=== PATIENT | female | born 1990 | race Caucasian/White ===

== ENCOUNTER 2016-05-17 21:51 | Emergency (ER) | payer OTHER ==
[~2016-05-17] VITALS: Ht 167.6 cm; Wt 56.5 kg
[2016-05-17 21:56] VITALS: Ht 167.6 cm; Wt 56.5 kg
[2016-05-17] MEDS ORDERED: ONDANSETRON 4 MG INJ IV STA (23:13)
[2016-05-17] MEDS ORDERED: SOD CHLORIDE 0.9% 1,000 ML IV ONE (23:30)
--- NOTE | 2016-05-17 23:31 | ERD ---
ER Documentation Chief Complaint Date/Time DATE: 05/17/16 TIME: 23:28 Chief Complaint 16 wks , pelvic pain and upper abd pain sine 2 hours ago, HPI Otherwise healthy 25-year-old female estimated to be 16 weeks presents the emergency department complaining of sudden onset of sharp 9 out of 10 epigastric pain following lunch today around 3 PM. Patient states that the pain was constant and lasted 45 minutes. Patient states she has never experienced this type of pain in the past and denies any acid reflux, burning, nausea, vomiting. Patient denies any pain since that time. Patient currently denies any significant pelvic pain, cramping or vaginal bleeding. Patient has not attempted to treat the pain at home with Tylenol. Patient notes intermittent nausea. She denies any fever, chills, diarrhea, back pain, dysuria , hematuria. ROS All systems reviewed and are negative except as per history of present illness. Allergies Allergies: Coded Allergies: No Known Allergy (Unverified , 05/17/16) PMhx/Soc Medical and Surgical Hx: pt denies Medical Hx, pt denies Surgical Hx Hx Alcohol Use: No Hx Substance Use: No Hx Tobacco Use: No Smoking Status: Never smoker Physical Exam Vitals Vital Signs Date Time Temp Pulse Resp B/P Pulse Ox O2 Delivery O2 Flow Rate FiO2 05/17/16 21:56 98.6 79 20 110/65 100 Physical Exam Const: Well-developed, well-nourished, in no acute distress Head: Atraumatic Eyes: Normal Conjunctiva ENT: Normal External Ears, Nose and Mouth. Neck: Full range of motion..~ No meningismus. Resp: Clear to auscultation bilaterally Cardio: Regular rate and rhythm, no murmurs Abd: Soft, non tender, non distended. Normal bowel sounds Skin: No petechiae or rashes Back: No midline or flank tenderness Ext: No cyanosis, or edema Neur: Awake and alert Psych: Normal Mood and Affect Result Diagram: 05/17/16 2345 05/17/16 2345 Results 24 hrs Laboratory Tests Test 05/17/16 23:45 Alanine Aminotransferase (ALT/SGPT) 19IU/L Albumin 4.1g/dl Albumin/Globulin Ratio 1.32 Alkaline Phosphatase 56IU/L Anion Gap 15 Aspartate Amino Transf (AST/SGOT) 17IU/L Basophils # 0.010^3/ul Basophils % 0.2% Blood Urea Nitrogen 7mg/dl Calcium Level 9.4mg/dl Carbon Dioxide Level 27mmol/L Chloride Level 101mmol/L Creatinine 0.45mg/dl Direct Bilirubin 0.00mg/dl Eosinophils # 0.110^3/ul Eosinophils % 0.8% Globulin 3.10g/dl Glucose Level 79mg/dl Hematocrit 36.4% Hemoglobin 11.9g/dl Indirect Bilirubin 0.0mg/dl Lymphocytes # 3.010^3/ul Lymphocytes % 27.9% Mean Corpuscular Hemoglobin 30.7pg Mean Corpuscular Hemoglobin Concent 32.7g/dl Mean Corpuscular Volume 93.8fl Mean Platelet Volume 10.3fl Monocytes # 0.610^3/ul Monocytes % 5.1% Neutrophils # 7.110^3/ul Neutrophils % 65.6% Nucleated Red Blood Cells # 0.010^3/ul Nucleated Red Blood Cells % 0.0/100WBC Platelet Count 19968^3/UL Potassium Level 3.1mmol/L Red Blood Count 3.8810^6/ul Red Cell Distribution Width 13.4% Sodium Level 140mmol/L Total Bilirubin 0.0mg/dl Total Protein 7.2g/dl Urine Bilirubin NEGATIVE Urine Clarity SLIGHTLY CLOUDY Urine Color LT. YELLOW Urine Glucose NEGATIVE% Urine Hemoglobin NEGATIVE Urine Ketones NEGATIVE Urine Leukocyte Esterase NEGATIVE Urine Nitrite NEGATIVE Urine Specific [place] 1.020 Urine Total Protein NEGATIVE Urine Urobilinogen 0.2 E.U./dL Urine pH 7.0 White Blood Count 10.810^3/ul Current Medications Medications (Trade) Dose Ordered Sig/Gregorio Route PRN Reason Start Time Stop Time Status Last Admin Dose Admin Sodium Chloride (NS) 1,000 ml @ 1,000 mls/hr Q1H ONCE IV 05/17/16 23:30 05/18/16 00:29 DC 05/17/16 23:37 Ondansetron HCl (Zofran Inj) 4 mg ONCE STAT IV 05/17/16 23:13 05/17/16 23:19 DC 05/17/16 23:36 Procedures/MDM Ultrasound of abdomen performed in ER. No evidence of gallbladder wall thickening or bile duct dilation, hepatitis or pancreatitis. Ultrasound does demonstrate mild right-sided hydronephrosis. Patient received a bolus of fluids as well as Zofran for nausea and reports improvement of symptoms. Patient's urine unremarkable for acute bacteremia or hematuria CMP without evidence of severe electrolyte abnormality, biliary obstruction, acidosis, or alkalosis. CBC demonstrate evidence of iron deficiency anemia with hemoglobin of 11.9. At this time patient does not meet criteria for admission and blood transfusion. I recommended to the patient the vaginal ultrasound to examine the health of the fetus however patient refused stating that she only wished to obtain an abdominal ultrasound. Patient denies any history of severe lower abdominal pain, bleeding, or vaginal discharge. At this time I have low suspicion for spontaneous , pelvic inflammatory disease, ovarian torsion, cholecystitis, appendicitis, pancreatitis or hepatitis. Patient's vital signs reviewed. Patient afebrile, normotensive, non-tachycardic and non-hypoxic. Based on patient's history of present illness and physical examination the decision was made to discharge. The patient was re-evaluated after ED treatment and stabilizing measures, and symptoms have improved. There is no evidence of life threatening injuries or illnesses at this time. On re-examination, patient resting in no distress, stable vital signs, reports feeling better and safe for discharge with outpatient follow up with PMD in 1-2 days. Patient given return precautions. Departure Diagnosis: Primary Impression: Abdominal pain Abdominal location: epigastric Qualified Code: R10.13 - Epigastric pain Additional Impressions: Epigastric pain Nausea Anemia Anemia type: iron deficiency Iron deficiency anemia type: unspecified iron deficiency Qualified Code: D50.9 - Iron deficiency anemia, unspecified iron deficiency anemia type FAYE JOLLY PA-C May 17, 2016 23:31
[2016-05-18 00:22] LABS: ADD SCAN DIFF NO
[2016-05-18 00:32] LABS: ADD UMIC NO; URINE BILIRUBIN (Dip) NEGATIVE (NEGATIVE); URINE BLOOD (Dip) NEGATIVE (NEGATIVE); URINE COLOR LT. YELLOW (YELLOW); URINE GLUCOSE (Dip) NEGATIVE (NEGATIVE); URINE KETONES (Dip) NEGATIVE (NEGATIVE); URINE LEUKOCYTE ESTERASE (Dip) NEGATIVE (NEGATIVE); URINE NITRITE (Dip) NEGATIVE (NEGATIVE); URINE TOTAL PROTEIN (Dip) NEGATIVE (NEGATIVE); URINE UROBILINOGEN (Dip) 0.2 E.U./dL (0.1-1.0)
[2016-05-18 00:38] LABS: BASOPHILS % 0.2 % (0.0-2.0); EOSINOPHILS # 0.1 10^3/ul (0.0-0.5); EOSINOPHILS % 0.8 % (0.0-7.0); HEMATOCRIT 36.4 % (37.0-47.0); HEMOGLOBIN 11.9 g/dl (12.0-16.0); LYMPHOCYTES % 27.9 % (15.0-51.0); MEAN CORPUSCULAR HEMOGLOBIN 30.7 pg (29.0-33.0); MEAN CORPUSCULAR HGB CONC 32.7 g/dl (32.0-37.0); MEAN CORPUSCULAR VOLUME 93.8 fl (82.0-101.0); MEAN PLATELET VOLUME 10.3 fl (7.4-10.4); MONOCYTE # 0.6 10^3/ul (0.3-0.9); MONOCYTES % 5.1 % (0.0-11.0); NEUTROPHIL # 7.1 10^3/ul (1.6-7.5); NEUTROPHILS % 65.6 % (39.0-77.0); PLATELET COUNT 212 10^3/UL (140-415); RED BLOOD COUNT 3.88 10^6/ul (4.20-5.40); RED CELL DISTRIBUTION WIDTH 13.4 % (11.5-14.5); WHITE BLOOD COUNT 10.8 10^3/ul (4.8-10.8)
[2016-05-18 00:48] LABS: ALBUMIN 4.1 g/dl (3.3-4.9); POTASSIUM 3.1 mmol/L (3.5-5.1)
[2016-05-18 00:50] LABS: CREATININE 0.45 mg/dl (0.44-1.00)
[2016-05-18 00:51] LABS: ALBUMIN/GLOBULIN RATIO 1.32; CALCIUM 9.4 mg/dl (8.4-10.2); TOTAL PROTEIN 7.2 g/dl (6.1-8.1)
--- NOTE | 2016-05-18 01:19 | RADRPT ---
PROCEDURE: ULTRASOUND LIMITED ABDOMEN CLINICAL INDICATION: 25-year-old female with abdominal pain. TECHNIQUE: Multiple sonographic of the right upper quadrant of the abdomen were obtained. The imag es were reviewed on a PACS workstation. COMPARISON: None. FINDINGS: The pancreas is partially visualized and is otherwise without focal abnormal echogenicity. The liver displays normal echogenicity. The liver measures 15.3 cm in length. No evidence of intrah epatic biliary ductal dilatation is seen. The portal and hepatic veins are unremarkable. The gallbladder demonstrates no wall thickening, sludge, nor stones. No pericholecystic fluid is see n. The common bile duct measures 3.5 mm and is not dilated. The right kidney displays normal echogenicity. The right kidney measures 11.4 cm in maximal length. There is mild right-sided hydronephrosis. No free fluid is seen. IMPRESSION: Mild right-sided hydronephrosis. .Adi Whitman MD, MD Date Time Electronically viewed and signed by .Adi Whitman MD, on 05/18/2016 01:19 .Janie/
[2016-05-18] MEDS ORDERED: FAMO20TA18 PO (02:03)
[2016-05-18] MEDS ORDERED: FER325 PO (02:03)
[2016-05-18] MEDS ORDERED: ONDA4TAB11 PO (02:03)
[2016-05-18 02:53] VITALS: BP 109/66; PULSE 72; RESP 16
--- NOTE | 2016-05-18 09:12 | RADRPT ---
PROCEDURE: US OB. CLINICAL INDICATION: Pain. TECHNIQUE: Multiple sonographic images of the pelvis were obtained. Transabdominal imaging only w as performed. The images were reviewed on a PACS workstation. COMPARISON: None. FINDINGS: Single live intrauterine is identified. Cardiac activity is present with 143 beats per mi nute. There is a breech presentation. Measurements: BPD = 17 weeks 1 day. HC = 16 weeks 5 days. AC = 17 weeks 2 days. FL = 16 weeks 1 day. Estimated gestational age of approximately 16 weeks 6 days. The estimated date of delivery is 10/26/2016. The EFW = 168 g which is at the 82nd percentile. The placenta is anterior. . Amniotic fluid a single pocket is 4.8 cm. IMPRESSION: Single live intrauterine gestation of approximately 16 weeks 6 days. RPTAT: HMVK .Santiago Martino MD, Date Time Electronically viewed and signed by .Santiago Martino MD, on 05/18/2016 01:14 .K/
== END 2016-05-18 02:54 | disposition home or self-care (01) ==
LOC: FTE 21:51
DX: O26.892 Other specified pregnancy related conditions, second trimester (principal); R10.13 Epigastric pain; O99.012 Anemia complicating pregnancy, second trimester; O21.9 Vomiting of pregnancy, unspecified
CPT/HCPCS: 76705; 76810; 80053; 81003; 85025; 96374; J2405; J7030; Z7502

== ENCOUNTER 2016-09-02 21:13 | Inpatient (IN) | payer OTHER ==
[~2016-09-02] VITALS: Ht 157.5 cm; Wt 63.2 kg
[~2016-09-02 21:13] MED LIST: FAMO20TA18 PO; FER325 PO; ONDA4TAB11 PO
[2016-09-02] MEDS: LACTATED RINGER'S 1,000 ML IV SCH ×2 (22:45→23:06)
[2016-09-02] MEDS ORDERED: ACETAMINOPHEN 1000MG/100ML IV 100 ML IVPB PRN (23:45)
[2016-09-03] MEDS ORDERED: ONDANSETRON 4 MG INJ IV PRN (00:30)
[2016-09-03 00:42] VITALS: Ht 157.5 cm; Wt 63.2 kg
[2016-09-03 00:44] VITALS: BP 102/62; PULSE 110; RESP 18
--- NOTE | 2016-09-03 00:48 | HP ---
Date/Time of Note Date/Time of Note DATE: 09/03/16 TIME: 00:36 OB - History Hx of Present Free Text/Dictation 25 Year-old with SIUP at 31 4/7 weeks presents with a chief complaint of back pain and chills. She states diagnosed with UTI 2wks ago, was treated, however repeat U/C revealed still has URTI and was treated with different antibiotics. She states good movement. She denies nausea, vomiting, shortness of breath, chest pain, and headache, visual changes, vaginal bleeding or LOF. Care: Good Care Ultrasounds: Normal mid trimester US Obstetrical Complications: None Medical Complications: None Past Family/Social History * Past Medical, Surgical, Family and Obstetric Histories reviewed from chart. OB Admission Exam Physical Exam Heart: Other (tachcardic) Lungs: Clear Abdomen: WNL Extremities: Normal Reflexes: Normal Membranes: Intact Heart Rate: 150's (150-180) Accelerations: Accelerations Present Decelerations: No Decelerations Varibility: Moderate OB Assessment/Plan Other plan: 25 Year-old with SIUP at 31 4/7 weeks with back pain, fever,chills and possible pyelo - FHR: No sign of metabolic acidosis- Category I - Continuous EFM, toco - CBC, blood type and screen - CMP, U/A, U/C - OB and abdominal us - IVF bolus then 125 ml/h - Tylenol 1000 mg x1 stat - Ancef one gram IV Q6hrs Admission, procedures, expectations, risks and possible complications have been discussed in detail with the patient. She expressed understanding and repeats the risks. All of her questions were answered. She will follow by laborist SAVI HERNANDEZ Sep 03, 2016 00:46
[2016-09-03] MEDS: LACTATED RINGER'S 1,000 ML IV SCH ×3 (01:00→16:32)
[2016-09-03 01:25] LABS: ADD SCAN DIFF NO; BASOPHILS % 0.1 % (0.0-2.0); EOSINOPHILS % 0.1 % (0.0-7.0); HEMATOCRIT 31.3 % (37.0-47.0); HEMOGLOBIN 10.9 g/dl (12.0-16.0); LYMPHOCYTES # 1.1 10^3/ul (0.8-2.9); LYMPHOCYTES % 8.1 % (15.0-51.0); MEAN CORPUSCULAR HEMOGLOBIN 33.2 pg (29.0-33.0); MEAN CORPUSCULAR HGB CONC 34.8 g/dl (32.0-37.0); MEAN CORPUSCULAR VOLUME 95.4 fl (82.0-101.0); MEAN PLATELET VOLUME 9.5 fl (7.4-10.4); MONOCYTE # 0.6 10^3/ul (0.3-0.9); MONOCYTES % 4.6 % (0.0-11.0); NEUTROPHIL # 11.5 10^3/ul (1.6-7.5); NEUTROPHILS % 86.1 % (39.0-77.0); PLATELET COUNT 157 10^3/UL (140-415); RED BLOOD COUNT 3.28 10^6/ul (4.20-5.40); WHITE BLOOD COUNT 13.4 10^3/ul (4.8-10.8)
[2016-09-03] MEDS ORDERED: PREN-93 PO (01:27)
[2016-09-03 01:51] LABS: ADD UMIC YES; UR AMORPHOUS CRYSTAL MANY /HPF (NONE SEEN); UR ASCORBIC ACID NEGATIVE (NEGATIVE); UR BACTERIA MODERATE /HPF (NONE SEEN); UR BILIRUBIN (Dip) NEGATIVE (NEGATIVE); UR BLOOD (Dip) NEGATIVE (NEGATIVE); UR CLARITY CLOUDY (CLEAR); UR COLOR YELLOW (YELLOW); UR GLUCOSE (Dip) NEGATIVE (NEGATIVE); UR KETONES (Dip) NEGATIVE (NEGATIVE); UR LEUKOCYTE ESTERASE (Dip) 1+ Leu/ul (NEGATIVE); UR NITRITE (Dip) NEGATIVE (NEGATIVE); UR RBC 2 /HPF (0-5); UR SPECIFIC GRAVITY (Dip) 1.011 (1.003-1.030); UR SQUAMOUS EPITHELIAL CELL MANY /HPF (FEW); UR TOTAL PROTEIN (Dip) NEGATIVE (NEGATIVE); UR UROBILINOGEN (Dip) 1+ mg/dL (NEGATIVE)
[2016-09-03 01:59] LABS: ALBUMIN 3.6 g/dl (3.3-4.9); ALBUMIN/GLOBULIN RATIO 1.5; BILIRUBIN,INDIRECT 0.6 mg/dl (0-1.1); BILIRUBIN,TOTAL 0.6 mg/dl (0.2-1.3); CALCIUM 9.2 mg/dl (8.4-10.2); CREATININE 0.39 mg/dl (0.44-1.00); POTASSIUM 3.3 mmol/L (3.5-5.1)
--- NOTE | 2016-09-03 02:08 | RADRPT ---
PROCEDURE: ULTRASOUND RETROPERITONEUM CLINICAL INDICATION: 25-year-old female with back pain. TECHNIQUE: Multiple sonographic images of the retroperitoneum were obtained. The images were revi ewed on a PACS workstation. COMPARISON: None. FINDINGS: The kidneys are well visualized. The right kidney measures 12.2 cm in maximal length. The left kidne y measures 11.6 cm in maximal length. There are no focal areas of abnormal echogenicity. There is no evidence for obstructive uropathy. The bladder is without internal echoes or shadowing stones. IMPRESSION: Unremarkable retroperitoneal ultrasound. .Adi Whitman MD, Date Time Electronically viewed and signed by .Adi Whitman MD, on 09/03/2016 02:08 .Janie/
--- NOTE | 2016-09-03 02:08 | RADRPT ---
PROCEDURE: ULTRASOUND BIOPHYSICAL PROFILE CLINICAL INDICATION: 25-year-old female with contractions for viability. TECHNIQUE: Multiple sonographic images were obtained in order to perform a biophysical profile The images were reviewed on a PACS workstation. COMPARISON: Ultrasound OB May 17, 2016. FINDINGS: There is a single viable intrauterine gestation. There is a vertex presentation. Cardiac activity i s present at 168 beats per minute. The placenta is anterior. The results of the biophysical profile are as follows: breathing movement = 2/2 Gross body movement = 2/2 tone = 2/2 Qualitative amniotic fluid volume = 2/2 Amniotic fluid index equals 12.6 cm. This yields a biophysical profile score of 8/8. IMPRESSION: Biophysical profile score is 8/8. .dAi Whitman MD, Date Time Electronically viewed and signed by .Adi hWitman MD, on 09/03/2016 02:07 .Janie/
[2016-09-03] MEDS: CEFAZOLIN 2 GM/50 ML (PMX) 50 ML IVPB SCH ×3 (03:16→12:50)
[2016-09-03] MEDS ORDERED: ACETAMINOPHEN 1000MG/100ML IV 100 ML IVPB PRN (03:30)
[2016-09-03] MEDS ORDERED: ACETAMINOPHEN (10 MG/ML) IV SYG IV* PRN ×2 (03:30→23:37)
--- NOTE | 2016-09-03 05:44 | TRIAGE ---
OB Triage Datetime Report Generated by CPN: 09/03/2016 05:44 Datetime: 09/03/2016 05:28 Stage of : Antepartum Temperature Route: Oral Datetime: 09/03/2016 05:15 Labor Evaluation Frequency: x3 Monitor Mode: External Duration (sec)2399: 40-50 Quality: Mild Resting Tone [place]: Relaxed Heart Rate FHR Baseline Rate: 135 Monitor Mode: External US Variability: Moderate 6-25 bpm Accelerations: 15X15 Decelerations: None Category: Category I Pain Presence: None/Denies Pain Type: N/A Datetime: 09/03/2016 04:15 Labor Evaluation Frequency: 0 Monitor Mode: External Resting Tone [place]: Relaxed Heart Rate FHR Baseline Rate: 135 Monitor Mode: External US Variability: Moderate 6-25 bpm Accelerations: 15X15 Decelerations: None Category: Category I Pain Presence: None/Denies Pain Type: N/A Datetime: 09/03/2016 03:15 Labor Evaluation Frequency: x1 Monitor Mode: External Duration (sec)2399: 40 Quality: Mild Resting Tone [place]: Relaxed Heart Rate FHR Baseline Rate: 140 Monitor Mode: External US Variability: Moderate 6-25 bpm Accelerations: 15X15 Decelerations: None Category: Category I Pain Presence: None/Denies Pain Type: N/A Datetime: 09/03/2016 02:15 Labor Evaluation Frequency: X4 Monitor Mode: External Duration (sec)2399: 40-70 Quality: Mild Resting Tone [place]: Relaxed Contraction Comments: PT DENIES FEELING ANY UC'S. Heart Rate FHR Baseline Rate: 140 Monitor Mode: External US Variability: Moderate 6-25 bpm Accelerations: 15X15 Decelerations: None Category: Category I Pain Presence: None/Denies Pain Type: N/A Datetime: 09/03/2016 01:13 Stage of : Antepartum Assessment Type: Ongoing Assessment Maternal Assessment Level of Consciousness: Fully Conscious DTR's/Clonus: DTRs 2+; No Clonus Headache: Denies Blurred Vision: No Respiratory Effort: Unlabored; Regular Rhythm; Equal Expansion Breath Sounds, Left: Clear and Equal Breath Sounds, Right: Clear and Equal Nausea/Vomiting: Denies RUQ Epigastric Pain: Denies Lower Extremities Edema: None Degree: None Upper Extremities Edema: None Degree: None Facial Edema: None Temperature Route: Oral Fall Risk Assessment History of Falling: (0) No Secondary Diagnosis: (0) No Ambulatory Aid: (0) Bedrest/Nurse Assist IV Therapy: (0) No Gait: (0) Normal/Bedrest/Immobile Mental Status: (0) Oriented to Own Ability Fall Score: 0 Fall Risk Score Definition: No Risk: No action required Pain Presence: None/Denies Datetime: 09/03/2016 00:58 Vaginal Exam Dilatation (cms): 0.0 Effacement (%): 0 Station: -3 Exam By: Laurie CHURCH RN Vaginal Bleeding: None Cervix, Consistency: Firm Cervix, Position: Posterior Datetime: 09/03/2016 00:52 Stage of : OB Triage Datetime: 09/03/2016 00:45 Membrane Status: Intact Datetime: 09/03/2016 00:00 Labor Evaluation Frequency: IRREGULAR Monitor Mode: External Duration (sec)2399: 60 Quality: Mild Pattern: Normal: <= 5 Contractions in 10 Minutes Resting Tone [place]: Relaxed Heart Rate FHR Baseline Rate: 165 FHR Baseline Changes: No Baseline Change Variability: Moderate 6-25 bpm Accelerations: 15X15 Decelerations: None Category: Category I Datetime: 09/02/2016 23:25 Temperature Route: Oral Datetime: 09/02/2016 23:13 Stage of : OB Triage Datetime: 09/02/2016 23:00 Labor Evaluation Frequency: IRREGULAR Monitor Mode: External Duration (sec)2399: 60-120 Quality: Mild Pattern: Normal: <= 5 Contractions in 10 Minutes Resting Tone [place]: Relaxed Heart Rate FHR Baseline Rate: 185 Monitor Mode: External US FHR Baseline Changes: No Baseline Change Variability: Moderate 6-25 bpm Accelerations: 15X15 Decelerations: None Category: Category I Datetime: 09/02/2016 22:29 Time of Arrival: 09/03/2016 01:21 EGA: 31.5 Arrived By: Ambulatory Arrived From: Other Unit in Hospital Datetime: 09/02/2016 22:00 Labor Evaluation Frequency: 2-6 Monitor Mode: External Duration (sec)2399: 60-120 Quality: Mild Pattern: Normal: <= 5 Contractions in 10 Minutes Resting Tone [place]: Relaxed Heart Rate FHR Baseline Rate: 150 Monitor Mode: External US FHR Baseline Changes: No Baseline Change Variability: Moderate 6-25 bpm Accelerations: 15X15 Decelerations: None Category: Category I Datetime: 09/02/2016 21:36 Stage of : OB Triage Assessment Type: Triage Time of Arrival: 09/02/2016 21:14 Arrived By: Wheelchair Arrived From: Home Chief Complaint: RT BACK PAIN Movement: Present Contractions: Denies/Absent Rupture of Membranes: Denies Vaginal Bleeding: None Vaginal Discharge: Denies Recent Sexual Intercouse: Denies Abdominal Trauma: Not Applicable Patient Complaints: None Time Provider Notified: 09/02/2016 22:50 Provider Notified: DR HERNANDEZ Initial Plan: CALL MD [facility] Maternal Assessment Level of Consciousness: Fully Conscious DTR's/Clonus: DTRs 2+; No Clonus Headache: Denies Blurred Vision: No Respiratory Effort: Unlabored; Regular Rhythm; Equal Expansion Breath Sounds, Left: Clear and Equal Breath Sounds, Right: Clear and Equal Nausea/Vomiting: Denies RUQ Epigastric Pain: Denies Lower Extremities Edema: None Degree: None Upper Extremities Edema: None Degree: None Facial Edema: None Temperature Route: Oral Fall Risk Assessment History of Falling: (0) No Secondary Diagnosis: (0) No Ambulatory Aid: (0) Bedrest/Nurse Assist IV Therapy: (0) No Gait: (0) Normal/Bedrest/Immobile Mental Status: (0) Oriented to Own Ability Fall Score: 0 Fall Risk Score Definition: No Risk: No action required Monitor Mode: External Monitor Mode: External US Pain Assessment Pain Scale: 9 Pain Presence: Constant Pain Type: Sharp Pain Location: Back (Annotations: rt)
[2016-09-03] MEDS: MULTIVIT/MIN/FOLATE/IRON/PREN TAB PO SCH (09:26)
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
[2016-09-03] MEDS ORDERED: LACTATED RINGER'S 1,000 ML IV SCH (18:04)
[2016-09-03] MEDS: ACETAMINOPHEN 325 MG TAB PO PRN (18:13)
[2016-09-03] MEDS: ACCU-CHEK XX SCH (20:38)
[2016-09-03] MEDS: AMPICILLIN/SULB 3 GM/NS (PMX) 100 ML IVPB SCH (21:37)
[2016-09-04] MEDS: AMPICILLIN/SULB 3 GM/NS (PMX) 100 ML IVPB SCH ×4 (00:19→17:40)
[2016-09-04] MEDS: LACTATED RINGER'S 1,000 ML IV SCH ×3 (00:20→20:04)
[2016-09-04] MEDS: ACETAMINOPHEN 325 MG TAB PO PRN ×2 (06:29→15:21)
[2016-09-04] MEDS: ACCU-CHEK XX SCH ×3 (08:42→20:04)
[2016-09-04 08:52] LABS: ADD SCAN DIFF NO
[2016-09-04] MEDS: MULTIVIT/MIN/FOLATE/IRON/PREN TAB PO SCH (08:54)
--- NOTE | 2016-09-04 09:04 | CONS ---
Date/Time of Note Date/Time of Note DATE: 09/04/16 TIME: 08:59 Assessment/Plan Assessment/Plan Chief Complaint/Hosp Course 1. Sinus tachycardia. Most probably secondary to underlying febrile illness. The patient has had no history of any cardiac disease. Will obtain a thyroid function panel to evaluate for any underlying clinical or subclinical hyperthyroidism. The patient will be adequately hydrated. The patient's fever will be controlled. Serum electrolyte levels will be obtained to evaluate for any significant electrolyte imbalances that could be contributing to her sinus tachycardia. 2. Urinary tract infection. Continue antibiotics. The urine culture is positive for E. coli that is pansensitive. 3. Intrauterine gestation. Management as per TILE PROFESSIONAL. Continue vitamin. 4. Reported gestational diabetes mellitus from outside clinic. The patient's random blood glucose has been running stable. Hemoglobin A1c pending. Management as per TILE PROFESSIONAL. Additional diagnostic and therapeutic orders will be unless clinically indicated. The case and management of this patient was fully discussed with Dr. Gupta. Thank you Dr. Hernandez for allowing us to participate in this patient's care. We will continue to follow the patient along with you. Recommendations: If the patient's fever subsides and if the patient has no more significant sinus tachycardia (HR>120/min), the patient may be discharged home on oral antibiotics. There is no need for further evaluation of her sinus tachycardia unless it is a getting worse or remains sustained despite antibiotic therapy and IV hydration. Problems: Consultation Date/Type/Reason Admit Date/Time Sep 03, 2016 at 00:52 Date of Consultation: Sep 04, 2016 Reason for Consultation Medical. Referring Provider: SAVI HERNANDEZ of Present Illness This is a 25-year-old female who has a current intrauterine of 31 weeks. She was admitted to [facility] on 09/03/2016 because of complaints of fevers, chills, and low back pain. The patient was found to have urinary tract infection with E. coli. Consequently, the patient is currently on Unasyn. The patient continues to have fevers. The patient was noticed to be tachycardic with a heart rate as high as of 136 bpm. Consequently , hospitalist was consulted. The patient was running high fevers at the time the patient had sinus tachycardia. Patient denied any chest pain, palpitations , dyspnea, dizziness, or any unusual signs or symptoms. The patient denied any history of heart problems. The patient denied any history of thyroid diseases. No family history of heart disease. Constitutional: no complaints Eyes: no complaints ENT: no complaints Respiratory: no complaints Cardiovascular: no complaints Gastrointestinal: no complaints Genitourinary: no complaints Musculoskeletal: back pain Neurologic: no complaints Endocrine: no complaints Lymphatic: no complaints Psychological: nl mood/affect, no complaints, No other, No suicidal Immunologic: no complaints Past Medical History Medical History: no pertinent history Past Surgical History Past Surgical Hx: no surgical history Family History Significant Family History: diabetes Social History The patient lives at home. Alcohol Use: none Smoking Status: Never smoker Drug Use: none Exam/Review of Systems Vital Signs Vitals Vital Signs Date Time Temp Pulse Resp B/P Pulse Ox O2 Delivery O2 Flow Rate FiO2 09/03/16 00:44 99.2 110 18 102/62 Room Air Intake and Output 09/03/16 09/03/16 09/04/16 15:00 23:00 07:00 Intake Total 750 ml 1000 ml 625 ml Output Total 600 ml 700 ml 1000 ml Balance 150 ml 300 ml -375 ml Exam General: Adequately build 25 year-old female lying in bed in no apparent distress. HEENT: Normocephalic, atraumatic. Eyes: Anicteric sclerae, conjunctivae clear. ENT: Nasal septum midline, oral mucosa moist. Neck supple, no JVD noticed. Respiratory: Bilaterally clear breath sounds. No use of accessory muscles of respiration. No adventitious breath sounds. Cardiovascular: S1, S2 heard. No murmurs or gallops. Sinus tachycardia. Abdomen: Protruded abdomen. Bowel sounds positive in all 4 quadrants. Genitourinary: Deferred. Extremities: No cyanosis, no clubbing, no edema. Peripheral pulses palpable. Neurologic: Cranial nerves II through XII grossly intact. The patient is awake, alert, and oriented. Skin: Normal skin turgor. No skin rashes. Results Result Diagram: 09/03/1611609/03/16116 Results 24 hrs Laboratory Tests Test 09/03/16 20:38 09/04/16 08:41 Bedside Glucose 105 104 Medications Medications Current Medications Lactated Ringer's (Lr) 1,000 ml @ 125 mls/hr Q8H IV Last administered on t 00:20; Admin Dose 125 MLS/HR; Start 09/02/16 at 23:06 Prenat Multivit/ [place]/Iron/Folic Ac ( S) 1 tab DAILY PO Last administered on 09/03/16 09:26; Admin Dose 1 TAB; Start 09/03/16 at 09:00 Acetaminophen (Tylenol Tab) 650 mg Q4H PRN PO PAIN AND OR ELEVATED TEMP Last administered on 09/04/16 06:29; Admin Dose 650 MG; Start 09/03/16 at 00:30 Ondansetron HCl 4 mg 4 mg Q6H PRN IV NAUSEA AND/OR VOMITING; Start 09/03/16 at 00:30 Ampicillin Sodium/ Sulbactam Sodium (Unasyn 3gm/NS (Pmx)) 100 ml @ 100 mls/hr Q6 IVPB Last administered on 09/04/16 06:03; Admin Dose 100 MLS/HR; Start at 19:00 Diagnostic Test (Pha) (Accu-Chek) 1 ea FBSPP XX Last administered on 09/03/16 20:38; Admin Dose 1 EA; Start 09/03/16 at 20:05 Procedures Procedures Biophysical Profile IMPRESSION: Biophysical profile score is 8/8. Twelve-lead EKG Sinus tachycardia. Name: JONNY MORRISON Age/Sex: 25/F Attend Dr: SAVI HERNANDEZ Acct: [id number] MR# : [id number] : 1990 Location: [facility] 2273-A Admit: 09/03/16 Specimen: [id number] Status: Complete Lindsay: 09/02/16-2244 Rcvd: 09/03-129 Source: RITESH BOLIVAR Sp Descrip: Procedure Result Microbiology URINE CULTURE Final Organism 1 ESCHERICHIA COLI COLONY COUNT >100,000 CFU/ml E COLI M.I.C. RX --------- --- AMPICILLIN <=2 S CEFAZOLIN S CEFOTAXIME S CIPROFLOXACIN <=0.25 S GENTAMICIN <=1 S LEVOFLOXACIN <=0.12 S NITROFURANTOIN <=16 S TOBRAMYCIN <=1 S TRIMETHOPRIM/SULFAMETHOXAZOLE <=20 S ................................................................................ ............ Flags: Critical Hi = *H Critical Lo = *L Microbiology Abnormal = * Abnormal Hi = H Abnormal Lo = L Blood Bank Abnormal = * Susceptability Flags: S = Sensitive R = Resistant I = Intermediate END OF REPORT QUENTIN MARTE NP Sep 04, 2016 09:03
[2016-09-04] MEDS ORDERED: SOD CHLORIDE 0.9% 500 ML IV ONE (09:30)
[2016-09-04 09:32] LABS: BASOPHILS % 0.2 % (0.0-2.0); EOSINOPHILS % 0.1 % (0.0-7.0); HEMATOCRIT 30.6 % (37.0-47.0); HEMOGLOBIN 10.2 g/dl (12.0-16.0); LYMPHOCYTES # 1.2 10^3/ul (0.8-2.9); LYMPHOCYTES % 10.3 % (15.0-51.0); MEAN CORPUSCULAR HEMOGLOBIN 32.2 pg (29.0-33.0); MEAN CORPUSCULAR HGB CONC 33.3 g/dl (32.0-37.0); MEAN CORPUSCULAR VOLUME 96.5 fl (82.0-101.0); MEAN PLATELET VOLUME 10.4 fl (7.4-10.4); MONOCYTES % 8.4 % (0.0-11.0); NEUTROPHIL # 9.6 10^3/ul (1.6-7.5); NEUTROPHILS % 79.4 % (39.0-77.0); PLATELET COUNT 159 10^3/UL (140-415); RED BLOOD COUNT 3.17 10^6/ul (4.20-5.40); RED CELL DISTRIBUTION WIDTH 13.2 % (11.5-14.5); WHITE BLOOD COUNT 12.1 10^3/ul (4.8-10.8)
[2016-09-04 09:56] LABS: CALCIUM 8.3 mg/dl (8.4-10.2); CREATININE 0.42 mg/dl (0.44-1.00); MAGNESIUM 1.4 mg/dl (1.7-2.5)
[2016-09-04 10:02] LABS: POTASSIUM 2.9 mmol/L (3.5-5.1)
--- NOTE | 2016-09-04 10:34 | RADRPT ---
Vent Rate: 118 bpm RR Interval: 0 msec [place] Interval: 128 msec QRS Duration: 78 msec QT Interval: 308 msec QTC Interval: 431 msec P-R-T [place]: 54 - 60 - 31 degrees Sinus tachycardia Otherwise normal ECG Electronically Signed By: Juan Antonio Abel [id number]
[2016-09-04] MEDS ORDERED: POTASSIUM CHLORIDE 40 MEQ in LACTATED RINGER'S 1,000 ML IV SCH (12:00)
[2016-09-04 13:47] LABS: THYROID STIMULATING HORMONE 0.942 MIU/L (0.465-4.680)
--- NOTE | 2016-09-04 14:22 | PN ---
Date/Time of Note Date/Time of Note DATE: 09/04/16 TIME: 14:14 OB Subjective Subjective Subjective Denies any fever or chills. feels significant improvement of her back pain. Denies any LOF, vaginal bleeding or decreased movement. Denies any chest pain or SOB. Denies any palpitation Reports had history of UTI x 3 in current . was recently started on abx , missed a dose of abx , was on prophylactic abx., how ever developed pyelonephritis OB Objective Objective Objective GA: A&O, NAD Abdomen: soft, non tender, gravid. Fundal Height consistent with GA. No CVA tenderness. Extremities: no calf tenderness, NST: Cat 1 No contractions Hematology - 72 Hrs Test 09/03/16 01:17 09/04/16 05:53 White Blood Count 13.410^3/ul (4.8-10.8) #H 12.110^3/ul (4.8-10.8) H Red Blood Count 3.2810^6/ul (4.20-5.40) L 3.1710^6/ul (4.20-5.40) L Hemoglobin 10.9g/dl (12.0-16.0) L 10.2g/dl (12.0-16.0) L Hematocrit 31.3% (37.0-47.0) L 30.6% (37.0-47.0) L Mean Corpuscular Volume 95.4fl (82.0-101.0) 96.5fl (82.0-101.0) Mean Corpuscular Hemoglobin 33.2pg (29.0-33.0) H 32.2pg (29.0-33.0) Mean Corpuscular Hemoglobin Concent 34.8g/dl (32.0-37.0) 33.3g/dl (32.0-37.0) Red Cell Distribution Width 13.0% (11.5-14.5) 13.2% (11.5-14.5) Platelet Count 88081^3/UL (140-415) # 62532^3/UL (140-415) Mean Platelet Volume 9.5fl (7.4-10.4) 10.4fl (7.4-10.4) Neutrophils % 86.1% (39.0-77.0) H 79.4% (39.0-77.0) H Lymphocytes % 8.1% (15.0-51.0) L 10.3% (15.0-51.0) L Monocytes % 4.6% (0.0-11.0) 8.4% (0.0-11.0) Eosinophils % 0.1% (0.0-7.0) 0.1% (0.0-7.0) Basophils % 0.1% (0.0-2.0) 0.2% (0.0-2.0) Nucleated Red Blood Cells % 0.0/100WBC (0.0-0.0) 0.0/100WBC (0.0-0.0) Neutrophils # 11.510^3/ul (1.6-7.5) H 9.610^3/ul (1.6-7.5) H Lymphocytes # 1.110^3/ul (0.8-2.9) 1.210^3/ul (0.8-2.9) Monocytes # 0.610^3/ul (0.3-0.9) 1.010^3/ul (0.3-0.9) H Eosinophils # 0.010^3/ul (0.0-0.5) 0.010^3/ul (0.0-0.5) Basophils # 0.010^3/ul (0.0-0.1) 0.010^3/ul (0.0-0.1) Nucleated Red Blood Cells # 0.010^3/ul (0.0-0.0) 0.010^3/ul (0.0-0.0) Chemistry Test 09/03/16 01:17 09/03/16 20:38 09/04/16 05:53 09/04/16 08:41 Sodium Level 136mmol/L (135-144) Potassium Level 3.3mmol/L (3.5-5.1) L Chloride Level 107mmol/L (97-110) Carbon Dioxide Level 21mmol/L (21-31) Anion Gap 11 (8-16) Blood Urea Nitrogen 6mg/dl (7-20) L Creatinine 0.39mg/dl (0.44-1.00) L Glucose Level 111mg/dl (70-220) Calcium Level 9.2mg/dl (8.4-10.2) Total Bilirubin 0.6mg/dl (0.2-1.3) Direct Bilirubin 0.00mg/dl (0.00-0.20) Indirect Bilirubin 0.6mg/dl (0-1.1) Aspartate Amino Transf (AST/SGOT) 17IU/L (15-46) Alanine Aminotransferase (ALT/SGPT) 21IU/L (13-69) Alkaline Phosphatase 96IU/L (42-121) Total Protein 6.0g/dl (6.1-8.1) L Albumin 3.6g/dl (3.3-4.9) Globulin 2.40g/dl (1.3-3.2) Albumin/Globulin Ratio 1.50 Bedside Glucose 105mg/dL (70-220) 104mg/dL (70-220) Hemoglobin A1c 5.3% (0-5.9) Test 09/04/16 09:10 Sodium Level 133mmol/L (135-144) L Potassium Level 2.9mmol/L (3.5-5.1) *L Chloride Level 103mmol/L (97-110) Carbon Dioxide Level 24mmol/L (21-31) Anion Gap 9 (8-16) Blood Urea Nitrogen 3mg/dl (7-20) L Creatinine 0.42mg/dl (0.44-1.00) L Glucose Level 108mg/dl (70-220) Calcium Level 8.3mg/dl (8.4-10.2) L Magnesium Level 1.4mg/dl (1.7-2.5) L Thyroid Stimulating Hormone (TSH) 0.942MIU/L (0.465-4.680) Free Thyroxine 0.89ng/dl (0.79-2.35) OB Assessment/Plan Other Assessment: IUP at 31 weeks and 6 days Right sided pyelonephritis. Currently on unisum Afebrile Culture : Ecoli, sensitive to ampicillin, Clinically responded Maternal tachycardia. ECG. sinus tachycardia, per medicine related to infection. ECG sinus tachycardia Hypokalemia. receiving K IV, asymptomatic and stable Other plan: Continue IV abx IV fluids follow up with medicine AIDE ACKERMAN MD Sep 04, 2016 14:22
[2016-09-05] MEDS: AMPICILLIN/SULB 3 GM/NS (PMX) 100 ML IVPB SCH ×4 (00:30→18:04)
[2016-09-05] MEDS: LACTATED RINGER'S 1,000 ML IV SCH ×3 (00:54→22:27)
[2016-09-05] MEDS: ACCU-CHEK XX SCH ×4 (07:30→19:49)
[2016-09-05] MEDS ORDERED: BISACODYL (EC) 5 MG TAB PO PRN (09:00)
[2016-09-05] MEDS: DOCUSATE SODIUM 100 MG CAP PO SCH (09:12)
[2016-09-05] MEDS: POTASSIUM CHLORIDE (SR) 20 MEQ TAB PO SCH (09:12)
[2016-09-05] MEDS: MULTIVIT/MIN/FOLATE/IRON/PREN TAB PO SCH (09:12)
--- NOTE | 2016-09-05 12:30 | PN ---
Date/Time of Note Date/Time of Note DATE: 09/05/16 TIME: 12:28 Assessment/Plan VTE Prophylaxis VTE Prophylaxis Intervention: ambulation, SCD's Assessment/Plan Chief Complaint/Hosp Course 1. Sinus tachycardia. Most probably secondary to underlying febrile illness. Largely resolved. Thyroid panel within normal limits. 2. Urinary tract infection. Continue antibiotics. The urine culture is positive for E. coli that is pansensitive. 3. Intrauterine gestation. Management as per SMOG TECHNICIAN. Continue vitamin. 4. Reported gestational diabetes mellitus from outside clinic. The patient's random blood glucose has been running stable. Hemoglobin A1c 5.3. Management as per SMOG TECHNICIAN. 5. Prophylaxis. DVT prophylaxis with ambulation. No gastrointestinal prophylaxis indicated. 6. Recommendations.If the patient's fever subsides and if the patient has no more significant sinus tachycardia (HR>120/min), the patient may be discharged home on oral antibiotics. There is no need for further evaluation of her sinus tachycardia unless it is a getting worse or remains sustained despite antibiotic therapy and IV hydration. Case discussed with . Thank you for the consult. Problems: Subjective 24 Hr Interval Summary Free Text/Dictation Denies any chest pain or palpitations. Exam/Review of Systems Vital Signs Vitals Vital Signs Date Time Temp Pulse Resp B/P Pulse Ox O2 Delivery O2 Flow Rate FiO2 09/03/16 00:44 99.2 110 18 102/62 Room Air Intake and Output 09/04/16 09/04/16 09/05/16 15:00 23:00 07:00 Intake Total 1900 ml 2565 ml 2050 ml Output Total 1200 ml 950 ml 1800 ml Balance 700 ml 1615 ml 250 ml Exam General: Adequately build 25 year-old female lying in bed in no apparent distress. HEENT: Normocephalic, atraumatic. Eyes: Anicteric sclerae, conjunctivae clear. ENT: Nasal septum midline, oral mucosa moist. Neck supple, no JVD noticed. Respiratory: Bilaterally clear breath sounds. No use of accessory muscles of respiration. No adventitious breath sounds. Cardiovascular: S1, S2 heard. No murmurs or gallops. Sinus tachycardia. Abdomen: Protruded abdomen. Bowel sounds positive in all 4 quadrants. Genitourinary: Deferred. Extremities: No cyanosis, no clubbing, no edema. Peripheral pulses palpable. Neurologic: Cranial nerves II through XII grossly intact. The patient is awake, alert, and oriented. Skin: Normal skin turgor. No skin rashes. Results Result Diagram: 09/04/16 0553 09/04/16 0910 Results 24 hrs Laboratory Tests Test 09/04/16 15:24 09/04/16 20:03 09/05/16 07:50 09/05/16 11:15 Bedside Glucose 130 102 92 115 Medications Medications Current Medications Lactated Ringer's (Lr) 1,000 ml @ 125 mls/hr Q8H IV Last administered on 11:23; Admin Dose 125 MLS/HR; Start 09/02/16 at 23:06 Prenat Multivit/ [place]/Iron/Folic Ac ( S) 1 tab DAILY PO Last administered on 09/05/16 09:12; Admin Dose 1 TAB; Start 09/03/16 at 09:00 Acetaminophen (Tylenol Tab) 650 mg Q4H PRN PO PAIN AND OR ELEVATED TEMP Last administered on 09/04/16 15:21; Admin Dose 650 MG; Start 09/03/16 at 00:30 Ondansetron HCl 4 mg 4 mg Q6H PRN IV NAUSEA AND/OR VOMITING; Start 09/03/16 at 00:30 Ampicillin Sodium/ Sulbactam Sodium (Unasyn 3gm/NS (Pmx)) 100 ml @ 100 mls/hr Q6 IVPB Last administered on 09/05/16 06:08; Admin Dose 100 MLS/HR; Start at 19:00 Diagnostic Test (Pha) (Accu-Chek) 1 ea FBSPP XX Last administered on 09/04/16 20:04; Admin Dose 1 EA; Start 09/03/16 at 20:05 Potassium Chloride (Klor-Con 20) 20 meq DAILY PO Last administered on 09:12; Admin Dose 20 MEQ; Start 09/05/16 at 09:00 Docusate Sodium (Colace) 100 mg DAILY PO Last administered on 09/05/16 09:12; Admin Dose 100 MG; Start 09/05/16 at 09:00 Bisacodyl (Dulcolax) 10 mg DAILY PRN PO CONSTIPATION; Start 09/05/16 at 09:00 QUENTIN MARTE NP Sep 05, 2016 12:30
--- NOTE | 2016-09-05 13:43 | QN ---
Documentation Comment pt feeling better vss last fever 09/04 exam wnl a/p iup 32 weeks R pyelo improvig continue IV abx possible DC ELICEO Dietrich MD Sep 05, 2016 13:43
[2016-09-06] MEDS: AMPICILLIN/SULB 3 GM/NS (PMX) 100 ML IVPB SCH ×3 (00:02→12:19)
[2016-09-06] MEDS: ACCU-CHEK XX SCH ×2 (07:30→11:05)
[2016-09-06] MEDS: LACTATED RINGER'S 1,000 ML IV SCH (07:40)
[2016-09-06] MEDS: MULTIVIT/MIN/FOLATE/IRON/PREN TAB PO SCH (08:56)
[2016-09-06] MEDS: POTASSIUM CHLORIDE (SR) 20 MEQ TAB PO SCH (08:56)
[2016-09-06] MEDS: DOCUSATE SODIUM 100 MG CAP PO SCH (08:56)
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
== END 2016-09-06 15:15 | disposition home or self-care (01) | DRG 781 ==
LOC: OBT 21:13 → L-D 21:16 → OBT 09-03 00:52 → OBG 09-03 00:52
PROVIDERS: ADMIT Obstetrics & Gynecology; ATTEND Obstetrics & Gynecology
DX: O36.4XX0 Maternal care for intrauterine death, not applicable or unspecified (principal); O23.43 Unspecified infection of urinary tract in pregnancy, third trimester; O24.419 Gestational diabetes mellitus in pregnancy, unspecified control; Z3A.31 31 weeks gestation of pregnancy; B96.20 Unspecified Escherichia coli [E. coli] as the cause of diseases classified elsewhere
CPT/HCPCS: 36415; 76775; 76818; 80048; 80053; 81001; 82731; 82962; 83036; 83735; 84439; 84443; 85025; 87086; 93005; 96360; G0463; J0131; J0295; J0690; J3480; J7040; J7120

== ENCOUNTER 2016-10-15 22:21 | Outpatient (CLI) | payer OTHER ==
[~2016-10-15] VITALS: Ht 157.5 cm; Wt 63.4 kg
[~2016-10-15 22:21] MED LIST changes: -FAMO20TA18 PO; -FER325 PO; -ONDA4TAB11 PO; +PREN-93 PO
[2016-10-15 22:55] VITALS: Ht 157.5 cm; Wt 63.4 kg
--- NOTE | 2016-10-15 23:29 | RADRPT ---
PROCEDURE: Biophysical profile. CLINICAL INDICATION: Pelvic pain. TECHNIQUE: Multiple sonographic images of the pelvis were obtained with transabdominal technique. COMPARISON: 09/03/2016. FINDINGS: There is a single living intrauterine gestation with the fetus in a vertex position. The placenta i s anterior in location, grade II. heart tones of 150 beats per minute are identified. There i s normal amniotic fluid volume with an RIDDHI of 14.7 cm. breathing movements = 2 Gross body movements = 2 tone = 2 Qualitative AFV = 2 IMPRESSION: Biophysical profile 8 out of 8. .Geovanni Martinez MD, Date Time Electronically viewed and signed by .Geovanni Martinez MD, on 10/15/2016 23:28 .T/
--- NOTE | 2016-10-16 00:49 | PN ---
Triage Information Date/Time Reason for visit: DFM Weeks of Gestation 37 weeks /Para Diabetes: gestational Diabetes management: diet controlled Hypertention: none Objective Heart Rate: 130's Heart Rate Comments Category I Contractions: None Results/Medications Imaging Results BP 10/15 Disposition: Discharge Assessment/Plan Antepartum Testing Reassuring. While being monitored, the patient feels the baby move. D/C home. F/U on 10/17/2016 for repeat antepartum testing. OSKAR HYMAN MD Oct 16, 2016 00:49
== END 2016-10-16 00:56 | disposition home or self-care (01) ==
LOC: OBT 22:21 → L-D 22:23 → OBT 10-16 00:56
PROVIDERS: ATTEND Obstetrics & Gynecology
DX: O24.410 Gestational diabetes mellitus in pregnancy, diet controlled (principal); Z3A.37 37 weeks gestation of pregnancy
CPT/HCPCS: 76818; Z7500; G0463

== ENCOUNTER 2017-03-17 06:33 | Emergency (ER) | END 2017-03-17 08:53 | disposition home or self-care (01) ==

== ENCOUNTER 2017-11-25 19:38 | Emergency (ER) | END 2017-11-25 21:38 | disposition home or self-care (01) ==

== ENCOUNTER 2018-08-13 20:33 | Emergency (ER) | payer OTHER ==
[~2018-08-13] VITALS: Ht 157.5 cm; Wt 55.7 kg
[~2018-08-13 20:33] MED LIST changes: +ACET500C5 PO; +ALBU8.5H8 INH; +AZIT250T PO; +BENZ-6 PO; +IBUP-1542 PO; +OSEL75CA23 PO
[2018-08-13 20:47] VITALS: BP 122/58; PULSE 81; RESP 18; Ht 157.5 cm; Wt 55.7 kg
[2018-08-13] MEDS ORDERED: PHEN177S43 MT (22:54)
[2018-08-13] MEDS ORDERED: BENZ200C68 PO (22:54)
[2018-08-13] MEDS ORDERED: MED4DP PO (22:54)
--- NOTE | 2018-08-14 04:51 | ERD ---
ER Documentation Chief Complaint Chief Complaint sore throat x 3 days. also c/o cough HPI 27-year-old female with no significant past medical history presents to the emergency department complaining of sore throat and losing her voice for the past 3 days. She reports cough which is dry. Symptoms overall moderate in severity. She took [id number] medication with some relief. She denies any fevers, chills, or other symptoms at this time. ROS All systems reviewed and are negative except as per history of present illness. Medications Home Meds Active Scripts Phenol* (Chloraseptic* [place]) 177 Ml [place].pump, 2 SPRAY MT Q2H PRN for SORE THROAT, #1 BOTTLE Prov:FABI GALICIA PA-C 08/13/18 Benzonatate* (Benzonatate*) 200 Mg Capsule, 200 MG PO TID PRN for COUGH, #15 CAP Prov:FABI GALICIA PA-C 08/13/18 Methylprednisolone* (Medrol* DOSE PACK) 4 Mg/Dose-Pack Tab.ds.pk, 4 MG PO . DIRECTED, #1 PACKET Prov:FABI GALICIA PA-C 08/13/18 Ibuprofen* (Motrin*) 600 Mg Tab, 600 MG PO Q6, #30 TAB Prov:KARI MORA 11/25/17 Ibuprofen* (Motrin*) 600 Mg Tab, 600 MG PO Q8, #30 TAB Prov:BANDAR SIGALA 03/17/17 Benzonatate* (Tessalon Perle*) 100 Mg Capsule, 100 MG PO Q8H PRN for COUGH, #20 CAP Prov:PASBANDAR MYERS F 03/17/17 Albuterol Sulfate* (Proair HFA*) 8.5 Gm Hfa.aer.ad, 2 PUFF INH Q4, #1 INHALER Prov:PASBANDAR MYERS F 03/17/17 Azithromycin* (Zithromax*) 250 Mg Tablet, 250 MG PO .TAMMIE DIRECTED, #6 TAB TAKE 500 MG (2 TABS) THE FIRST DAY THEN 250 MG (1 TAB) DAYS 2-5 Prov:PASILAKESHAWN WARNERAR F 03/17/17 Acetaminophen* (Tylophen*) 500 Mg Capsule, 1 CAP PO Q6H PRN for PAIN AND OR ELEVATED TEMP, #20 CAP Prov:PASILABAN,KLAR F 03/17/17 Oseltamivir Phosphate* (Tamiflu*) 75 Mg Capsule, 75 MG PO BID for 5 Days, CAP Prov:BANDAR SIGALA 03/17/17 Reported Medications Vit No.124/Iron/FA ( Vitamin Tablet) 1 Each Tablet, 1 EACH PO, TAB 09/03/16 Allergies Allergies: Coded Allergies: No Known Allergy (Unverified , 09/03/16) PMhx/Soc Medical and Surgical Hx: pt denies Medical Hx History of Surgery: No Anesthesia Reaction: No Hx Neurological Disorder: No Hx Respiratory Disorders: No Hx Cardiac Disorders: No Hx Psychiatric Problems: No Hx Miscellaneous Medical Probl: No Hx Alcohol Use: No Hx Substance Use: No Hx Tobacco Use: No FmHx Family History: No diabetes Physical Exam Vitals Vital Signs Date Temp Pulse Resp B/P (MAP) Pulse Ox O2 O2 Flow FiO2 Time Delivery Rate 08/13/18 98.6 81 18 122/58 100 20:47 (79) Physical Exam Const: No acute distress Head: Atraumatic Eyes: Normal Conjunctiva ENT: Normal External Ears, Nose and Mouth. Mild erythema to the posterior pharynx. No tonsillar enlargement or exudate. The airway is patent. Uvula is midline. Neck: Full range of motion. No meningismus. Resp: Clear to auscultation bilaterally Cardio: Regular rate and rhythm, no murmurs Skin: No petechiae or rashes Ext: No cyanosis, or edema Neur: Awake and alert Psych: Normal Mood and Affect Procedures/MDM 27-year-old female presents to the emergency department complaining of sore throat, cough, losing her voice. She is Afebrile, nontoxic, and well-appearing. The patient's clinical presentation is very consistent with an acute viral syndrome. The patient does not exhibit any clinical signs or symptoms concerning for serious bacterial infection or systemic illness. Based on history and clinical exam findings the patient does not appear to have evidence of pneumonia, strep pharyngitis, urinary tract infection, bacteremia, sepsis, or meningitis. For these reasons I do not believe it is necessary to obtain laboratory testing or diagnostic imaging. I believe it would be appropriate for symptom control, and close outpatient primary care follow-up. Based on patient's history of present illness and physical examination the decision was made to discharge. There is no evidence of life threatening injuries or illnesses at this time. On re-examination, patient resting in no distress, stable vital signs, reports feeling better and safe for discharge with outpatient follow up with PMD in 1-2 days. Patient given return precautions. Departure Diagnosis: Primary Impression: Laryngitis Condition: Fair Patient Instructions: Self-Care for Sore Throats, Laryngitis Additional Instructions: Call your primary care doctor TOMORROW for an appointment during the next 1-2 days.See the doctor sooner or return here if your condition worsens before your appointment time. FABI GALICIA PA-C Aug 14, 2018 04:51
== END 2018-08-13 23:00 | disposition home or self-care (01) ==
LOC: FTE 20:33
DX: J04.0 Acute laryngitis (principal)
CPT/HCPCS: 99283